=== PATIENT | female | born 1935 | race Caucasian/White ===

== ENCOUNTER → 2016-12-12 | Outpatient (CLI) | payer MEDICARE ==
[~2016-12-12] MED LIST: ALPR0.5T PO; ASPI325T4 PO; CIPR500T94 PO; HYDR25TA9 PO; IBUP200T58 PO; MULT-245 PO
--- NOTE | 2016-12-12 11:05 | RAD ---
Indication ovarian failure. Screen for osteopenia/osteoporosis. The lumbar spine and right hip were evaluated. No prior bone density analysis is available. In the lumbar spine the average bone mineral density is approximately 0.91 g/cc. The T score of -2.3 is indicative of marked osteopenia bordering on osteoporosis. The average bone mineral density of the right hip is 0.69 g/cc. The T score of -2.6 is indicative of osteoporosis. Note is made that in the intratrochanteric area there is even more demineralization. 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
== END | disposition home or self-care (01) ==
LOC: DXRAD 10:32
PROVIDERS: ATTEND Nurse Practitioner Family
DX: M85.80 Other specified disorders of bone density and structure, unspecified site (principal); M81.0 Age-related osteoporosis without current pathological fracture
CPT/HCPCS: 77080

== ENCOUNTER → 2017-03-22 | Outpatient (CLI) | payer MEDICARE ==
[~2017-03-22] MED LIST changes: -ASPI325T4 PO; +ASPI325T8 PO
--- NOTE | 2017-03-22 14:08 | RAD ---
CT head without contrast 03/22/2017 Clinical indication: Pain at base of skull. Comparison: None. Technique: Multiple CT images of the head without contrast. PQRS Compliance Statement: One or more of the following individualized dose reduction techniques were utilized for this examination: 1. Automated exposure control 2. Adjustment of the mA and/or kV according to patient size 3. Use of iterative reconstruction technique Findings: Head: Ventricles and subarachnoid spaces are normal in size and configuration. No acute intracranial hemorrhage or extra-axial fluid collection. The gaytan-white matter interfaces are maintained. Basilar cisterns are patent. No midline shift. Visualized mastoid air cells and paranasal sinuses are well aerated. Impression: No acute intracranial hemorrhage.
== END | disposition home or self-care (01) ==
LOC: CT 13:11
PROVIDERS: ATTEND General Practice
DX: R51 Headache (principal)
CPT/HCPCS: 70450

== ENCOUNTER → 2018-02-08 | Outpatient (CLI) | payer MEDICARE ==
--- NOTE | 2018-02-08 15:51 | RAD ---
EXAM: Right knee, 3 views. HISTORY: Pain. COMPARISON: None. FINDINGS: Frontal, lateral and oblique views of the right knee are obtained. There is mild to moderate tricompartmental spurring. There is no fracture, dislocation or subluxation. There is suspected trace joint fluid. IMPRESSION: [id number] tricompartmental osteoarthritis of the right knee. Electronically signed by: Toshia Reid MD (02/08/2018 3:47 PM) [facility]
== END | disposition home or self-care (01) ==
LOC: DXRAD 15:10
PROVIDERS: ATTEND Orthopaedic Surgery Sports Medicine
DX: M17.11 Unilateral primary osteoarthritis, right knee (principal)
CPT/HCPCS: 73562

== ENCOUNTER 2018-04-22 15:32 | Emergency (ER) | payer MEDICARE ==
[~2018-04-22] VITALS: Ht 172.7 cm; Wt 73.9 kg
[2018-04-22] MEDS ORDERED: DIPHTH,PERTUSS(ACELL),TET TOX 0.5 ML DISP.SYRIN. VAX IM ONE (17:15)
--- NOTE | 2018-04-22 17:25 | PHYS DOC ---
Adult General Chief Complaint Chief Complaint: MECHANICAL FALL HPI HPI Patient is a 82 year old female who presents with complaining of a mechanical fall. Patient states she was at a store and lost her balance and had a fall and landed on her right side with injury to her chin and right wrist and right chest wall. Patient denies loss of consciousness and other injuries and states she was able to walk. Patient denies focal neuro deficit, nausea and vomiting, headache, fever and chills. Patient is not up-to-date with her tetanus immunization. Review of Systems Review of Systems Constitutional: Denies fever or chills [] Eyes: Denies change in visual acuity, redness, or eye pain [] HENT: Denies nasal congestion or sore throat [] Respiratory: Denies cough or shortness of breath [] Cardiovascular: No additional information not addressed in HPI [] GI: Denies abdominal pain, nausea, vomiting, bloody stools or diarrhea [] : Denies dysuria or hematuria [] Musculoskeletal: Denies back pain , reports joint pain [] Integument: Denies rash or skin lesions [] Neurologic: Denies headache, focal weakness or sensory changes [] Endocrine: Denies polyuria or polydipsia [] All other systems were reviewed and found to be within normal limits, except as documented in this note. Current Medications Current Medications Current Medications Medications (Trade) Dose Ordered Sig/Ange Start Time Stop Time Status Last Admin Dose Admin Diphtheria/ Tetanus/Acell Pertussis (Boostrix) 0.5 ml ONCE ONCE 04/22/18 17:15 04/22/18 17:16 DC Allergies Allergies Allergies Coded Allergies Type Severity Reaction Last Updated Verified Penicillins Allergy Unknown 01/02/14 Yes Sulfa (Sulfonamide Antibiotics) Allergy Unknown 01/02/14 Yes Physical Exam Physical Exam Constitutional: Well developed, well nourished, mild distress, non-toxic appearance. [] HENT: Normocephalic, chin contusion and abrasion without active bleeding, bilateral external ears normal, oropharynx moist, no oral exudates, nose normal. [] Eyes: PERRLA, EOMI, conjunctiva normal, no discharge. [] Neck: Normal range of motion, no tenderness, supple, no stridor. [] Cardiovascular:Heart rate regular rhythm, no murmur, right anterior chest wall tenderness without crepitation or subcutaneous emphysema [] Lungs & Thorax: Bilateral breath sounds clear to auscultation [] Abdomen: Bowel sounds normal, soft, no tenderness, no masses, no pulsatile masses. [] Skin: Warm, dry, no erythema, no rash. [] Back: No tenderness, no CVA tenderness. [] Extremities: Right wrist without deformity or edema, mild tenderness with painful range of motion. Neurologic: Alert and oriented X 3, normal motor function, normal sensory function, no focal deficits noted. [] Psychologic: Affect normal, judgement normal, mood normal. [] EKG EKG [] Radiology/Procedures Radiology/Procedures [] Course & Med Decision Making Course & Med Decision Making Pertinent Labs and Imaging studies reviewed. (See chart for details) My preliminary read of the x-rays and they're negative for fracture. The patient would really like to go home. She is stable for discharge at this time. [] Dragon Disclaimer Dragon Disclaimer This electronic medical record was generated, in whole or in part, using a voice recognition dictation system. Departure Departure: Impression: Primary Impression: Fall at home Referrals: NIMCO RODRIGUEZ MD (PCP) WALE AGUILAR MD Apr 22, 2018 17:25 IVÁN COX DO Apr 22, 2018 19:01
--- NOTE | 2018-04-22 18:20 | RAD ---
PQRS Compliance statement: One or more of the following individualized dose reduction techniques were utilized for this examination: 1. Automated exposure control. 2. Adjustment of the mA and/or kV according to patient size. 3. Use of iterative reconstruction technique. Indication:FALL TODAY, BRUISE AND LACERATION ON CHIN TECHNIQUE: CT head without IV contrast COMPARISON:Previous study from 03/22/2017 FINDINGS: No pathologic extra-axial or intra-axial fluid collection. The ventricles and basal cisterns are within normal limits. No acute intracranial bleed. No focal loss of gaytan-white differentiation. The orbits are within normal limits. No calvarial fractures. Visualized paranasal sinuses and mastoid air cells are clear. IMPRESSION: No acute intracranial process. Indication:FALL TODAY, BRUISE AND LACERATION ON CHIN TECHNIQUE: CT of the cervical spine without IV contrast with multiplanar reformats. COMPARISON:None FINDINGS: The cervical spine is in normal anatomic alignment. Atlantoaxial joint interval is preserved. No compression deformities. The facet joints are in normal anatomic alignment. No acute fractures. There is moderate degenerative disc disease at C5-C6 and posterior osteophytosis. Severe bilateral neuroforamina narrowing at this level. Multiple bilateral thyroid nodules, the largest on the right side measuring 1 cm. Biapical pleural scarring. Otherwise, noncontrast appearance of the visualized neck soft tissues is within normal limits. Clear lung apices. IMPRESSION: 1. No acute fractures. 2. Degenerative disc disease in the cervical spine as described above. Electronically signed by: Jason Rivera DO (04/22/2018 6:18 PM) [facility]
[2018-04-22 19:14] VITALS: BP 161/78
--- NOTE | 2018-04-23 05:07 | RAD ---
PA CHEST AND RIGHT RIB SERIES Clinical Indication: FALL TODAY, PAIN MID LATERAL RIGHT SIDE CHEST. NO DIFFICULTY BREATHING. Comparison: None. Findings: The cardiomediastinal silhouette is normal. Pulmonary vasculature is normal. The lungs are clear. No pleural effusion or pneumothorax is seen. There is right convexity lumbar scoliosis. There are incidental cervical ribs. There is no acute displaced rib fracture. A nondisplaced or subtle rib fracture could be obscured. IMPRESSION: 1. No acute cardiopulmonary process. 2. No acute displaced rib fracture. Electronically signed by: Rex Guzman MD (04/23/2018 5:03 AM) [facility]
--- NOTE | 2018-04-23 05:08 | RAD ---
WRIST 3V RIGHT Clinical Indication: FALL TODAY. PAIN IN RIGHT WRIST, BRUISING Comparison: None. Findings: No acute fracture of the distal radius or ulna. Carpal bones appear intact. There is triscaphe joint space narrowing. No soft tissue swelling is seen radiographically. Mild degenerative arthropathy of the first CMC joint. IMPRESSION: No acute fracture. Electronically signed by: Rex Guzman MD (04/23/2018 5:05 AM) [id number]
== END 2018-04-22 19:10 | disposition home or self-care (01) ==
LOC: ER 15:32
DX: S00.83XA Contusion of other part of head, initial encounter (principal); S69.91XA Unspecified injury of right wrist, hand and finger(s), initial encounter; S29.8XXA Other specified injuries of thorax, initial encounter; Z88.0 Allergy status to penicillin; Z88.2 Allergy status to sulfonamides; W19.XXXA Unspecified fall, initial encounter; Y93.89 Activity, other specified; Y92.512 Supermarket, store or market as the place of occurrence of the external cause; Y99.8 Other external cause status
CPT/HCPCS: 70450; 71101; 72125; 73110; 90471; 90715; 99284-25

== ENCOUNTER → 2018-12-25 | Outpatient (CLI) | payer MEDICARE ==
[~2018-12-25] MED LIST changes: +HYDR-2145 PO; -HYDR25TA9 PO
--- NOTE | 2018-12-25 16:22 | RAD ---
Examination: Left Lower Extremity Venous Doppler Ultrasound History: Left leg pain Comparison: None Procedure: Castrejon scale, color flow 2D and spectal waveform analysis images are obtained with and without compression in the area of the common femoral vein, superficial femoral vein - femoral vein junction, main femoral vein (superficial femoral vein) and popliteal vein. Veins of the proximal calf are also imaged. Findings: There is normal duplex flow, color flow and compressibility of all visualized vein segments. No evidence of deep venous thrombus is present. Impression: No evidence of DVT in the left lower extremity venous system. Electronically signed by: Raleigh Rose MD (12/25/2018 4:19 PM) [id number]
== END | disposition home or self-care (01) ==
LOC: US 10:50
PROVIDERS: ATTEND Family Medicine
DX: M79.605 Pain in left leg (principal); R22.42 Localized swelling, mass and lump, left lower limb
CPT/HCPCS: 93971